=== PATIENT | male | born 2000 | race Caucasian/White ===

== ENCOUNTER 2022-01-05 09:13 | Day surgery (SDC) | payer BC ==
[2022-01-02 15:26] VITALS: BMI 23.7
[2022-01-05] MEDS ORDERED: BUPIVACAINE HCL/PF 0.25% (2.5MG/ML) 10 ML VIAL ONE ×2 (10:06→10:51)
[2022-01-05] MEDS ORDERED: oxyCODONE HCL 5 MG TABLET PO PRN (11:25)
[2022-01-05] MEDS ORDERED: ACETAMINOPHEN 1000 MG/100 ML BAG IVPB PRN (11:25)
[2022-01-05] MEDS ORDERED: LACTATED RINGERS SOLUTION 1,000 ML IV SCH (11:30)
[2022-01-05] MEDS ORDERED: ACETAMINOPHEN INJECTION 100 ML IVPB ONE (11:39)
[2022-01-05 12:31] VITALS: BP 128/76; PULSE 70; TEMP 97.7
== END 2022-01-05 13:05 | disposition home or self-care (01) ==
LOC: FASU 09:13
PROVIDERS: ATTEND Orthopaedic Surgery Sports Medicine
PROC: 0SQD4ZZ Repair Left Knee Joint, Percutaneous Endoscopic Approach (ICD-10-PCS; 2022-01-05)
PROC: 0SBD4ZZ Excision of Left Knee Joint, Percutaneous Endoscopic Approach (ICD-10-PCS; principal; 2022-01-05 10:51)
DX: M67.52 Plica syndrome, left knee (principal); S83.32XA Tear of articular cartilage of left knee, current, initial encounter; M23.8X2 Other internal derangements of left knee; M25.562 Pain in left knee; X58.XXXA Exposure to other specified factors, initial encounter; Y93.9 Activity, unspecified; Y92.9 Unspecified place or not applicable
CPT/HCPCS: 94760